=== PATIENT | male | born 1940 | race Caucasian/White ===

== ENCOUNTER 2018-12-20 01:45 | Inpatient (IN) ==
[2018-12-20] MEDS ORDERED: ASPIRIN PO ONE (02:49)
[2018-12-20] MEDS ORDERED: NITROGLYCERIN SL PRN (02:49)
[2018-12-20 03:41] LABS: BASO# 0.05 X1000 (0.0-0.2); BASO% 0.7 % (0.0-0.8); EOS# 0.04 X1000 (0.0-0.7); EOS% 0.5 % (0.0-10.0); HEMATOCRIT 39.6 % (42.0-52.0); HEMOGLOBIN 12.5 g/dL (14.0-18.0); IMM GRAN# 0.03 X1000 (0.0-0.04); IMM GRAN% 0.4 % (0.0-0.5); LYMPH# 0.88 X1000 (1.2-3.4); LYMPH% 12.1 % (20.5-51.1); MCH 29.1 PG (27-31); MCHC 31.6 g/dL (33-37); MCV 92.1 FL (81-99); MONO# 0.62 X1000 (0.11-0.59); MONO% 8.5 % (1.7-9.3); MPV 9.8 FL (7.4-10.4); NEUT# 5.68 X1000 (1.4-6.5); NEUT% 77.8 % (42.2-75.2); PLT 234 X1000 (130-400); RDW 15.7 % (11.5-14.5)
[2018-12-20 04:03] LABS: AGAP 10; ALB/GLOB RATIO 1.5; ALKALINE PHOSPHATASE 113 U/L (32-122); BUN 21 mg/dL (8-22); CALCIUM 8.6 mg/dL (8.8-10.2); CHLORIDE 106 mmol/L (98-107); COSMO 292; CREATININE 1.1 mg/dL (0.7-1.2); ESTIMATED GFR > 60; GLUCOSE 105 mg/dL (70-104); GOT 32 U/L (10-34); GPT 38 U/L (10-44); POTASSIUM 3.8 mmol/L (3.5-5.1); SODIUM 145 mmol/L (136-145); TCO2 29 mmol/L (25-35); TOTAL BILIRUBIN 0.79 mg/dL (0.20-1.00); TOTAL PROTEIN 6.7 g/dL (6.3-8.3)
--- NOTE | 2018-12-20 04:24 | PROVIDER DOCUMENTATION ---
HPI-Chest Pain - General Chief Complaint: Chest Pain Stated Complaint: CP- SOB Time Seen by Provider: 12/20/18 01:59 Source: patient, family Allergies/Adverse Reactions: Patient Allergies Allergy/AdvReac Type Severity Reaction Status Date / Time levofloxacin [From Levaquin] Allergy Mild RASH Verified 12/20/18 01:57 codeine [Codeine] AdvReac Mild NAUSEA Verified 12/20/18 01:57 Home Medications: Home Medication List Medication Instructions Recorded Confirmed Last Taken Type Tamsulosin [Flomax] 0.4 mg PO DAILY 05/11/12 12/20/18 12/19/18 History Finasteride 5 mg PO DAILY 09/16/17 12/20/18 12/19/18 History Furosemide [Lasix] 40 mg PO BID #60 tab 09/16/17 12/20/18 12/19/18 Rx Isosorbide Dinitrate [Isordil] 40 mg PO TID@0900,1500,2100 #90 tab 09/16/17 12/20/18 12/19/18 Rx Lisinopril 10 mg PO BID 09/16/17 12/20/18 12/19/18 History Metoprolol [Lopressor] 1 tab PO BID 09/16/17 12/20/18 12/19/18 History Mirtazapine 15 mg PO HS 09/16/17 12/20/18 12/19/18 History Warfarin [Coumadin] 2 mg PO DAILY 09/16/17 12/20/18 12/19/18 History Budesonide/Formoterol Fumarate 12/20/18 12/19/18 History [Symbicort 80-4.5 Mcg Inhaler] Hydralazine [Apresoline] PO 3-4XDAY PRN 12/20/18 Unknown History - History of Present Illness-CP Nature of Presenting Problem: 78 y/o c/o chest tightness and SOB since yesterday. He has history of having 2 heart valves replaced. Location: reports: substernal, other (lt sided) Chest Pain Radiation: reports: no radiation Quality of Pain: reports: tightness Severity in ED: moderate Onset/Duration: 24 hours ago Timing: still present Context/Activities at Onset: reports: light activity Modifying Factors: improves with: nothing Associated Symptoms: reports: edema, shortness of breath Nitro Today/Relief: provided by ED Aspirin Treatment Today: provided by ED Similar Symptoms Previously?: Yes Recently Seen Here or By Another Healthcare Provider: No Review of Systems - Adult - REVIEW OF SYSTEMS - ADULT Constitutional: reports: no symptoms reported, see HPI Eyes: reports: no symptoms reported, see HPI Ears, Nose, Mouth & Throat: reports: no symptoms reported, see HPI Cardiovascular: reports: see HPI, chest pain Respiratory: reports: shortness of breath Gastrointestinal: reports: no symptoms reported, see HPI Genitourinary: reports: no symptoms reported, see HPI Musculoskeletal: reports: no symptoms reported, see HPI Integumentary: reports: no symptoms reported, see HPI Neurological: reports: no symptoms reported, see HPI Psychiatric: reports: no symptoms reported, see HPI Endocrine: reports: no symptoms reported, see HPI Hematologic/Lymphatic: reports: no symptoms reported, see HPI Allergic/Immunologic: reports: no symptoms reported, see HPI All Other Systems: Reviewed and Negative Past History - Adult - PAST MEDICAL HISTORY-ADULT Review of Records: reports: Nursing Assessment Review, Medications Reviewed, Social history reviewed & non-contributory. Physical Exam-General - PHYSICAL EXAM-ADULT Initial Vital Signs Reviewed: Yes - CONSTITUTIONAL General Appearance: appears well, alert, no apparent distress - EYES Eyes: PERRL/EOMI - HEAD, EARS, NOSE, MOUTH & THROAT HENMT: normocephalic/atraumatic, moist mucous membranes - NECK Neck: non-tender, full range of motion, supple, normal inspection - RESPIRATORY Respiratory: chest non-tender, lungs clear, normal breath sounds, no pleuratic chest pain, no respiratory distress, no accessory muscle use - CARDIOVASCULAR Cardiovascular: normal peripheral pulses, regular rate, rhythm, no gallop, no JVD, no murmur - GASTROINTESTINAL (ABDOMEN) Abdominal Exam: normal bowel sounds, non tender, soft, no organomegaly, no pulsatile mass - LYMPHATIC Lymphatic: no adenopathy - MUSCULOSKELETAL Back Exam: normal inspection, no CVA tenderness, no vertebral tenderness Extremity: normal range of motion, non-tender, normal gait, normal inspection, no pedal edema, no calf tenderness, normal capillary refill - SKIN Integumentary: normal color, normal turgor - NEUROLOGIC Neurologic: estate manager II-XII nml as tested, grossly normal, no motor/sensory deficits - PSYCHIATRIC Psych/Mental Status: normal mood/affect, normal thought content, normal thought process, oriented x 3 - HEART Score HEART Score: History: Moderately Suspicious HEART Score: ECG: Non-Specific Repolarization Disturbance/LBBB/PM HEART Score: Age: > or = 65 Years HEART Score: Risk Factors for Atherosclerotic Disease: 1 or 2 Risk Factors HEART Score: Troponin: < or = Normal Limit Total HEART Score:: 5 Progress - PLAN OF CARE/RESULTS Progress/Plan/Lab Results: Vital Signs - 8 hr 12/20/18 02:05 12/20/18 04:00 Temperature 98 F 98.4 F Pulse Rate 77 70 Respiratory Rate 22 26 H Blood Pressure 205/106 167/91 O2 Sat by Pulse Oximetry 99 98 Laboratory Results - last 24 hr 12/20/18 12/20/18 12/20/18 03:15 03:15 03:15 WBC 7.30 RBC 4.30 L Hgb 12.5 L Hct 39.6 L MCV 92.1 MCH 29.1 MCHC 31.6 L RDW Std Deviation 15.7 H Plt Count 234 MPV 9.8 Immature Gran % (Auto) 0.4 Neut % (Auto) 77.8 H Lymph % (Auto) 12.1 L Whiteside % (Auto) 8.5 Eos % (Auto) 0.5 Baso % (Auto) 0.7 Immature Gran # (Auto) 0.03 Neut # (Auto) 5.68 Lymph # (Auto) 0.88 L Whiteside # (Auto) 0.62 H Eos # (Auto) 0.04 Baso # (Auto) 0.05 PT INR PTT (Actin FS) Sodium 145 Potassium 3.8 Chloride 106 Carbon Dioxide 29 Anion Gap 10 BUN 21 Creatinine 1.1 Estimated GFR/1.73 m2 > 60 BUN/Creatinine Ratio 19 Glucose 105 H Calculated Osmolality 292 Calcium 8.6 L Total Bilirubin 0.79 AST 32 ALT 38 Alkaline Phosphatase 113 Troponin T 0.032 Jox-S-Ztmtfoflaum Pept Total Protein 6.7 Albumin 4.0 Globulin 2.7 Albumin/Globulin Ratio 1.5 12/20/18 12/20/18 12/20/18 03:15 03:15 03:15 WBC RBC Hgb Hct MCV MCH MCHC RDW Std Deviation Plt Count MPV Immature Gran % (Auto) Neut % (Auto) Lymph % (Auto) Whiteside % (Auto) Eos % (Auto) Baso % (Auto) Immature Gran # (Auto) Neut # (Auto) Lymph # (Auto) Whiteside # (Auto) Eos # (Auto) Baso # (Auto) PT 33.4 H INR 3.02 PTT (Actin FS) 44.6 H Sodium Potassium Chloride Carbon Dioxide Anion Gap BUN Creatinine Estimated GFR/1.73 m2 BUN/Creatinine Ratio Glucose Calculated Osmolality Calcium Total Bilirubin AST ALT Alkaline Phosphatase Troponin T Dha-[place] Pept 4994 H Total Protein Albumin Globulin Albumin/Globulin Ratio Orders Category Date Time Status cxr [CHEST-1 VIEW] [RAD] Stat Exams 12/20/18 02:23 Taken BNP [PRO B-NATRIURETIC PEPTIDE] Stat Lab 12/20/18 03:15 Completed CBC WITH ELECTRONIC DIFF [HEME] Stat Lab 12/20/18 03:15 Completed COMPREHENSIVE METABOLIC PANEL [CHEM] Stat Lab 12/20/18 03:15 Completed PROTIME WITH INR [COAG] Stat Lab 12/20/18 03:15 Completed PTT [COAG] Stat Lab 12/20/18 03:15 Completed TROPONIN T Stat Lab 12/20/18 03:15 Completed URINALYSIS [URINALYSIS] Stat Lab 12/20/18 04:00 Ordered Aspirin Med 12/20/18 02:49 Discontinued 325 mg PO NOW ONE Nitroglycerin Sl [Nitroglycerin] Med 12/20/18 02:49 Active 0.4 mg SL Q5M PRN PRN EKG [EKG] Stat Ther 12/20/18 02:23 Ordered Result Diagrams: 12/20/18 03:15 12/20/18 03:15 Departure - Departure Date of Disposition Decision: 12/20/18 Time of Disposition Decision: 04:27 DIAGNOSIS: Congestive heart failure (CHF), Chest pain Disposition: ADMITTED INPATIENT 09 Certified Medical Emergency: Emergent Condition: Fair Referrals and Follow-Ups: Jas Murillo MD [Primary Care Provider] - - Critical Care Note This patient required my direct & personal management of CC.: No Attestation - Physician/ SASHA Attestation Patient care was provided by Advanced Practice Provider:: No The physician spent face to face time with patient:: Yes Advanced Practice Provider documentation review:: Supervising physician onsite and consulted in the evaluation and care of this patient. The physician did have a face to face encounter with the patient.
[2018-12-20 04:41] LABS: INR 3.02; PROTIME 33.4 Seconds (11.0-16.0)
[2018-12-20 05:30] LABS: URINE SOURCE CLEAN CATCH
[2018-12-20] MEDS ORDERED: LASIX IV ONE (05:31)
[2018-12-20 05:40] LABS: BILIRUBIN URINE NEGATIVE (NEGATIVE); BLOOD URINE NEGATIVE (NEGATIVE); COLOR YELLOW; GLUCOSE URINE NEGATIVE (NEGATIVE); KETONE URINE TRACE mg/dL (NEGATIVE); LEUKOCYTES URINE NEGATIVE (NEGATIVE); NITRITE URINE NEGATIVE (NEGATIVE); PH URINE 5.5; PROTEIN URINE 50 mg/dL (NEGATIVE); SP GRAVITY URINE 1.022; TURBIDITY URINE CLEAR (CLEAR); UROBILINOGEN URINE NORMAL (NORMAL)
[2018-12-20 05:42] LABS: UR EPITHELIAL CELLS <10 /HPF (<10); URINE BACTERIA NEGATIVE /HPF; URINE RBC <10 /HPF (<10); URINE WBC <10 /HPF (<10)
--- NOTE | 2018-12-20 06:31 | Diag Imaging Result Doc PS360 ---
CHEST-1 VIEW - 12/20/2018 INDICATION: cp COMPARISON: 12/12/2018 FINDINGS: Stable surgical changes to the heart. Stable significant cardiomegaly and pulmonary vascular congestion. No infiltrates or edema. No significant pleural effusion. IMPRESSION: Cardiomegaly and pulmonary vascular congestion. Electronically signed by Dylan Mayorga 12/20/2018 6:29 AM
--- NOTE | 2018-12-20 07:12 | EKG Report ---
Test Performed on : 12/20/2018 02:12:24 AM Test Reason : chest pain Blood Pressure : / mmHG Vent. Rate : 070 BPM Atrial Rate : 066 BPM P-R Int : 000 ms QRS Dur : 154 ms QT Int : 496 ms P-R-T Axes : 000 246 038 degrees QTc Int : 535 ms Atrial fibrillation. with premature ventricular or aberrantly conducted complexes. Right bundle branch block Inferior infarct (cited on or before 06-DEC-2011) Possible Anterolateral infarct , age undetermined Abnormal ECG When compared with ECG of 15-SEP-2017 06:47, Borderline criteria for Anterior infarct are now present Borderline criteria for Anterolateral infarct are now present Nonspecific T wave abnormality now evident in Inferior leads Nonspecific T wave abnormality no longer evident in Lateral leads Unconfirmed Result
--- NOTE | 2018-12-20 07:14 | HISTORY AND PHYSICAL ---
FAMILY CARE PROVIDER: Dr. Murillo. CHIEF COMPLAINT: Chest tightness and shortness of breath. HISTORY OF PRESENT ILLNESS: Mr. Barajas is a 78-year-old, male who carries a past medical history for severe coronary artery disease, status post CABG in 1994 with aortic valve replacement, and in 2009, developed endocarditis with mitral valve with severe mitral regurgitation that required reoperation with a mechanical mitral valve. He has been on anticoagulation with Coumadin. Atrial fibrillation, bipolar, GERD, osteoarthritis, who presented to the ED after an acute onset of shortness of breath that started at 2200 last night, associated with some chest tightness that did not radiate anywhere. He does not believe that he has had any weight gain. He saw Dr. Murillo 2 days ago. He has been taking his medications as prescribed. Again, he does not believe that he has had any weight gain. He has had some relief of his symptoms since he had treatment with IV Lasix, nitroglycerin, and aspirin. He has a slightly elevated ProBNP at 4994, slight elevation of his troponin at 0.032. He has had a chest x-ray; however, it is not available for review. It cannot be pulled up at this time. He denies any headache, fever, chills, nausea, vomiting, diarrhea, cough, or palpitations. He will be admitted to the medical telemetry floor for further workup and evaluation, and turned over to Dr. Murillo this morning. PAST MEDICAL HISTORY: 1. Coronary artery disease, status post CABG in 1994 along with aortic valve replacement with a mechanical valve. 2. In 2009, endocarditis of the mitral valve with severe mitral regurgitation, status post mechanical valve replacement, on chronic Coumadin therapy. 3. Bilateral inguinal hernia repair. 4. History of tonsillectomy and adenoidectomy. 5. Cholecystectomy secondary to chronic cholecystitis. 6. Right ulnar dysesthesia, status post surgery. 7. Benign prostatic hypertrophy. SOCIAL HISTORY: He is retired. He was . He lives at home alone. He is an ex-smoker but states he quit a long time ago. No alcohol or illicit drug use. FAMILY HISTORY: Father passed at the age of 65 secondary to complications from acute OR. His mother at the age of 88. ALLERGIES: Levaquin and codeine. HOME MEDICATIONS: 1. Symbicort 80/4.5 mcg inhaler. 2. Finasteride 5 mg p.o. daily. 3. Lasix 40 mg p.o. b.i.d. 4. Apresoline. 5. Isordil 40 mg p.o. t.i.d. 6. Lisinopril 10 mg p.o. b.i.d. 7. Lopressor 25 mg p.o. b.i.d. 8. Mirtazapine 50 mg p.o. at bedtime. 9. Flomax 0.4 mg p.o. daily. 10. Coumadin 2 mg p.o. daily. PHYSICAL EXAMINATION: VITAL SIGNS: Temperature 98.4 degrees, heart rate 70, respirations 26, blood pressure 167/91, O2 is 98% on 2 L nasal cannula. GENERAL: Mr. Barajas is a disheveled-looking, unkempt, 78-year-old, male who is lying on the stretcher on his left side, in no acute distress. HEENT: Atraumatic, normocephalic. PERRL. NECK: Supple. Trachea midline. I could not appreciate any JVD. CV: Irregularly irregular rhythm. No murmurs, gallops, or rubs noted. PULMONARY: Bilateral breath sounds are diminished. ABDOMEN: Soft, nontender, nondistended. Positive bowel sounds x4 quadrants. EXTREMITIES: Negative for any edema. NEUROLOGICAL: He follows commands. He moves all extremities. He answers questions appropriately. DIAGNOSTIC DATA: Chest x-ray, I am not able to pull it up at this time. It does not have an official over-read. EKG was not on the chart. He did appear on the monitor to be in atrial fibrillation, 50s to 60s. LABORATORY DATA: White count 7, hemoglobin and hematocrit 12 and 39, platelet count is 234,000. PT 33, INR 3.02. Sodium 145, potassium 3.8, BUN 21, creatinine 1.1, blood glucose is 105. Troponin 0.032. ProBNP is 4994. Urinalysis is negative for any bacteria, negative for nitrites. ASSESSMENT AND PLAN: 1. Mild congestive heart failure exacerbation with a slightly elevated proBNP. We will recheck an echocardiogram. Continue with gentle diuresis. Monitor intakes, outputs, and daily weights. Consult cardiology. 2. Chest pain. We will continue to trend his cardiac enzymes. He did have relief with sublingual nitroglycerin as well as intravenous Lasix. He is currently chest pain free. 3. Atrial fibrillation. We will continue with Coumadin. Monitor him on telemetry. Check an echocardiogram. 4. Status post aortic and mitral valve replacement with both mechanical valves, on chronic anticoagulation with Coumadin. We will check daily PT and INRs. 5. Long-term chronic anticoagulation. INR is therapeutic. 6. Bipolar disorder. 7. Gastroesophageal reflux disease. 8. Benign prostatic hypertrophy. 9. Further recommendations to follow physician evaluation, laboratory and diagnostic data. Dictated by MILE Morales for Cooper Wong MD I have performed a face to face diagnostic evaluation. Labs/ Xrays- reviewed. Exam- chest - rales, CV- regular A/P- CHF Exacerbation. , Chest Pain- Admit, gentle diuresis, serial troponins-, cardiology consult. Dr. Wong cc: MD Jas Turcios MD Luis N. Villanueva, MD [facility]ENTER[facility]
[2018-12-20] MEDS ORDERED: TYLENOL PO PRN (08:18)
[2018-12-20] MEDS ORDERED: PRINIVIL PO SCH (09:00)
[2018-12-20] MEDS ORDERED: LASIX IV SCH ×2 (09:00→21:00)
--- NOTE | 2018-12-20 09:06 | EKG Report ---
Test Performed on : 12/20/2018 08:57:06 AM Test Reason : follow up Blood Pressure : / mmHG Vent. Rate : 088 BPM Atrial Rate : 056 BPM P-R Int : 000 ms QRS Dur : 152 ms QT Int : 468 ms P-R-T Axes : 000 248 068 degrees QTc Int : 566 ms Atrial fibrillation. with premature ventricular or aberrantly conducted complexes. Right bundle branch block Inferior infarct (cited on or before 06-DEC-2011) Abnormal ECG When compared with ECG of 20-DEC-2018 02:12, (Unconfirmed) Serial changes of Inferior infarct present Confirmed by Yordan SILVA, Olayinka Flanagan ([id number]) on 12/21/2018 8:46:16 AM
--- NOTE | 2018-12-20 09:49 | PROGRESS NOTE ---
DATE: 12/20/2018 SUBJECTIVE: A 78-year-old white male who was admitted last night. He started having chest tightness and he has been complaining of being short of breath now for a couple of weeks. The tightness has gone away. We have checked a couple of times to see if he had hypoxemia significant enough to require oxygen, but his PO2 is well above normal limits. He has a history of severe coronary artery disease, status post CABG in 1994, aortic valve replacement in 2009, developed endocarditis of mitral valve and had severe mitral valve regurgitation, required reoperation with a mechanical mitral valve. He has been on anticoagulation with Coumadin since that time. History of atrial fibrillation, bipolar, gastroesophageal reflux disease, osteoarthritis. He also has a history of CVA with no residual deficits, but presented to the emergency room after shortness of breath that started about 10 o'clock last night, some chest tightness. He has been taking his medication and been following his Coumadin level. PAST MEDICAL HISTORY: 1. Coronary artery disease, CABG in 1994, along with aortic valve replacement, mechanical valve. 2. 2009 endocarditis of mitral valve with severe mitral regurgitation, status post mechanical valve replacement. Once again on Coumadin therapy. 3. Bilateral inguinal hernia repair. 4. History of tonsillectomy and adenoidectomy. 5. Cholecystectomy, secondary to cholecystitis. 6. Right ulnar dysesthesias, status post surgery. 7. Benign prostatic hypertrophy. MEDICATION: Symbicort 80 to 4.5 inhaler 2 puffs twice a day, finasteride 5 mg daily, Lasix 40 mg b.i.d., Apresoline, Isordil 40 mg t.i.d., lisinopril 10 mg b.i.d., Lopressor 25 mg b.i.d., mirtazapine 50 mg at bedtime, Flomax 0.4 mg daily, Coumadin 2 mg daily. OBJECTIVE: General: He is comfortable at present time, has nasal cannula in place. Awake, alert, oriented x3. Vitals: Remains afebrile, temperature 97.6 degrees, pulse 74, respirations 25, blood pressure 162/95. Eyes: Pupils are equal and round. Lungs: Clear anterolateral. Cardiovascular: Regular rhythm and rate without murmur or S3. Abdomen: Soft. Skin: Warm and dry. LABORATORY: White count 7300, hematocrit 39, hemoglobin 12, platelet count 234,000. Sodium 145, potassium 3.8, chloride 106, BUN 21, creatinine 1.1. ProBNP was 4994. ProTime is 33. INR of 3. PTT was 44. IMAGING: Chest x-ray: Cardiomegaly and pulmonary vascular congestion. No infiltrates. No pleural effusion appreciated. ASSESSMENT AND PLAN: 1. Chest tightness. Check cardiac enzymes. He is followed by Dr. Henderson. Troponin was 0.032. EKG shows right bundle branch block pattern. Appears to be in atrial fibrillation. He did have some premature ventricular complexes. He has the face of a right bundle branch block. I am not sure if he has true Q-waves in the inferior leads 2, 3 and AVF or not. I guess we may have to explore whether this is coronary insufficiency. He has been complaining of being more short of breath. On chest x-ray, I do not see any infiltrates, but it appears that he has vascularization out to the peripheral and I wonder if this is pulmonary venous hypertension. See if he responds to some diuresis. 2. Atrial fibrillation. Rate appears to be controlled. He is already on Coumadin because of his mechanical valve. 3. Status post aortic and mitral valve replacement with mechanical valves. He is adequately anticoagulated. 4. Long-term coagulation. INR is therapeutic. 5. Bipolar disorder. 6. Gastroesophageal reflux disease. 7. Benign prostatic hypertrophy. 8. His nutrition seems to be good. cc: Jas Murillo MD
[2018-12-20] MEDS: PRILOSEC PO SCH (10:58)
[2018-12-20] MEDS: PROSCAR PO SCH (10:58)
[2018-12-20] MEDS: ISORDIL PO SCH ×3 (10:58→20:19)
[2018-12-20] MEDS: LOPRESSOR PO SCH ×2 (10:58→20:07)
[2018-12-20] MEDS: FLOMAX PO SCH (10:58)
--- NOTE | 2018-12-20 12:11 | CARDIOLOGY CONSULTATION ---
DATE: 12/20/2018 CHIEF COMPLAINT: Shortness of breath, chest tightness. HISTORY OF PRESENT ILLNESS: Mr. Barajas is a 78-year-old white male with a history of coronary disease with previous bypass in 1994 with aortic valve replacement at that time, subsequently followed by 2009 mitral valve replacement with a mechanical valve secondary to endocarditis. Last night he was in his usual state of health when he became very short of breath and had some chest tightness occurring while he was getting ready for bed. He was not doing any significant exertion at the time. He reports compliance with his medications including his diuretics. He did not have any syncope. He reports compliance with his Coumadin. Reports that the levels have been under good control. He last saw Dr. Henderson in August 2018. PAST MEDICAL HISTORY: 1. Significant for coronary bypass grafting in 1994 with a vein graft to the LAD. At that time, he had an aortic valve replacement. 2. History of mitral valve replacement in [address] Johnson with a [employer] mitral valve. 3. History of atrial fibrillation in 2008 with a DC cardioversion. 4. Osteoarthritis. 5. Reflux disease. 6. Systolic heart failure. Last echocardiogram was in August 2017 demonstrating an EF of 40 to 45 percent. SOCIAL HISTORY: Retired, . Lives at home alone. Ex-smoker, quit many years ago. No alcohol use. FAMILY HISTORY: Father at 65 due to complications from an [facility]. His mother at the age of 88. REVIEW OF SYSTEMS: A 10 system review of systems is negative except for those things mentioned in HPI. PHYSICAL EXAMINATION: Vital Signs: He is afebrile. His heart rate most recently was 109, blood pressure 154/75. His presenting blood pressure was 205/106. His intake and output are -700 mL. Generally: No acute distress. HEENT: Oropharynx is moist. Poor dentition. Eye examination is pink conjunctiva, white sclerae. Neck: Shows no obvious thyromegaly or thyroid tenderness. Cardiovascular: He sounds to be in a regular rate and rhythm. I do not hear any obvious murmurs. He has a mechanical S1 and S2. No lower extremity edema. He has warm and well-perfused extremities. Chest: Has somewhat reduced breath sounds diffusely. No increased work of breathing. Abdomen: Soft, nontender, nondistended. He has no obvious organomegaly. Skin: Warm and dry throughout without any rashes. Neurological: He is moving all extremities well. He has no lateralizing deficits. Psychiatric: He is alert, oriented, pleasant. Normal mood and affect. PERTINENT DATA: His EKG has a nonspecific intraventricular conduction delay. He is in atrial fibrillation with a rate of 70. Subsequent EKG on the 1st again shows what appears to be a nonspecific intraventricular conduction delay, somewhat of a right bundle pattern, atrial fibrillation rate of 88 beats per minute. His chest x-ray demonstrated cardiomegaly and pulmonary vascular congestion. His lab data shows a white count of 7.3, his hematocrit is 39, his platelet count is 234,000. His INR is 3. His sodium is 145, potassium 3.8, BUN 21, creatinine is 1.1. His cardiac enzymes are negative times multiple sets. His proBNP is 4994. ASSESSMENT: Mr. Barajas is a 78-year-old gentleman who presents with what appears to be heart failure. PLAN: We will reinstitute some his medications including his hydralazine. I will escalate his lisinopril to 20 mg b.i.d. I will stop his oral Lasix and up-titrate his IV Lasix to 40 mg. INR management will be per the primary team. I will order laboratories in the morning including a proBNP. cc: MD Jas Morales MD
[2018-12-20] MEDS: APRESOLINE PO SCH ×2 (13:34→20:06)
[2018-12-20] MEDS: ZOFRAN IV PRN (18:09)
[2018-12-20] MEDS: PRINIVIL PO SCH (20:06)
[2018-12-20] MEDS: COUMADIN PO SCH (20:20)
[2018-12-20] MEDS: REMERON PO SCH (20:20)
[2018-12-20] MEDS: SYMBICORT 80/4.5 MICROGM INHALER INH SCH (20:21)
[2018-12-20] MEDS ORDERED: NS 500 ML IV ONE (22:54)
--- NOTE | 2018-12-20 23:17 | ECHO REPORT ---
ORDER DATE: 12/20/2018 SUMMARY: 1. Technically difficult study due to very limited acoustic window quality. 2. Aortic valve has been replaced with mechanical prosthesis, which is not well imaged due to acoustic shadowing. Peak gradient across aortic valve is 26 mmHg, with a mean gradient of 15 mmHg. Values are consistent with adequate prosthetic valve function. There is no evidence of aortic regurgitation. Mitral valve has been replaced with mechanical prosthesis, which also was not well imaged due to acoustic shadowing. Peak gradient across the mitral valve is 14 mmHg with a mean gradient of 4 mmHg, at a heart rate of 72 beats per minute. Using pressure half-time method, the calculated mitral valve area is 2.2 cm2. Values are consistent with adequate prosthetic valve function. There is no evidence of mitral regurgitation. Tricuspid valve is without evidence of structural abnormality. Pulmonic valve is not well demonstrated. The aortic root is mildly enlarged. 3. Normal left ventricular chamber size with moderate concentric left hypertrophy is suggested on 2-dimensional images. Estimated left ejection fraction approximately 50%. No obvious regional wall motion abnormality can be appreciated. Left atrium is moderately enlarged. Right atrium is [id number] enlarged. The right ventricle is normal size with grossly preserved right ventricular systolic function. 4. No pericardial effusion. 5. Appearance of inferior vena cava suggests normal central venous pressure. cc: MD Jas Ortiz MD
[2018-12-21] MEDS: NS 500 ML IV SCH ×2 (00:54→00:55)
[2018-12-21] MEDS: APRESOLINE PO SCH ×3 (04:10→22:03)
[2018-12-21] MEDS: PRILOSEC PO SCH ×2 (05:12→06:28)
[2018-12-21 07:03] LABS: BASO# 0.03 X1000 (0.0-0.2); BASO% 0.5 % (0.0-0.8); EOS# 0.08 X1000 (0.0-0.7); EOS% 1.3 % (0.0-10.0); HEMATOCRIT 40.9 % (42.0-52.0); HEMOGLOBIN 12.7 g/dL (14.0-18.0); LYMPH# 0.74 X1000 (1.2-3.4); LYMPH% 11.7 % (20.5-51.1); MCH 29.5 PG (27-31); MCHC 31.1 g/dL (33-37); MCV 94.9 FL (81-99); MONO# 0.61 X1000 (0.11-0.59); MONO% 9.6 % (1.7-9.3); MPV 9.9 FL (7.4-10.4); NEUT# 4.87 X1000 (1.4-6.5); NEUT% 76.9 % (42.2-75.2); PLT 222 X1000 (130-400); RBC 4.31 XMIL (4.7-6.1); RDW 15.7 % (11.5-14.5); WBC 6.33 X1000 (4.8-10.8)
--- NOTE | 2018-12-21 07:05 | Diag Imaging Result Doc PS360 ---
EXAM: CHEST-PORTABLE 12/21/2018 HISTORY: Chest Pain TECHNIQUE: AP portable at 0545 COMMENT: Compared to the previous study of 12/20/2018 there is slightly worse platelike atelectasis in the lingula. There is COPD. IMPRESSION: Slightly worsened atelectasis in the lingula. Electronically signed by Behzad Carlson 12/21/2018 7:03 AM
[2018-12-21 07:32] LABS: AGAP 12; ALB/GLOB RATIO 1.3; ALBUMIN 3.5 g/dL (3.5-5.0); ALKALINE PHOSPHATASE 97 U/L (32-122); BUN 23 mg/dL (8-22); CALCIUM 8.5 mg/dL (8.8-10.2); CHLORIDE 103 mmol/L (98-107); CHOLESTEROL 136 mg/dL (0-200); COSMO 288; CREATININE 1.1 mg/dL (0.7-1.2); ESTIMATED GFR > 60; GLUCOSE 85 mg/dL (70-104); GOT 30 U/L (10-34); GPT 29 U/L (10-44); HDL 57 mg/dL (35-55); LDL 65 mg/dL; POTASSIUM 4.2 mmol/L (3.5-5.1); SODIUM 143 mmol/L (136-145); TCO2 28 mmol/L (25-35); TOTAL BILIRUBIN 0.83 mg/dL (0.20-1.00); TOTAL PROTEIN 6.2 g/dL (6.3-8.3); TRIGLYCERIDES 68 mg/dL (39-160); VLDL 14 mg/dL
[2018-12-21] MEDS: PROSCAR PO SCH (08:55)
[2018-12-21] MEDS: PRINIVIL PO SCH ×2 (08:55→22:03)
[2018-12-21] MEDS: FLOMAX PO SCH (08:55)
[2018-12-21] MEDS: LOPRESSOR PO SCH ×2 (08:55→22:04)
[2018-12-21] MEDS: ISORDIL PO SCH ×3 (08:55→22:04)
[2018-12-21] MEDS: ASPIRIN PO SCH (08:55)
[2018-12-21] MEDS: ZOFRAN IV PRN ×2 (08:59→15:41)
[2018-12-21] MEDS: SYMBICORT 80/4.5 MICROGM INHALER INH SCH ×2 (09:00→19:05)
[2018-12-21] MEDS ORDERED: LASIX PO SCH (09:00)
--- NOTE | 2018-12-21 09:03 | PROGRESS NOTE ---
DATE: 12/21/2018 SUBJECTIVE: Mr. Barajas says he is feeling better. He is breathing a little better. I did note that he had a 6-beat run of ventricular tachycardia last night. He denies any further chest tightness or chest discomfort. OBJECTIVE: Vital Signs: Temp 98.2 degrees, pulse 62, respirations 12, blood pressure 122/55. Urine output is 960 mL. HEENT: Pupils are equal and round. Neck: No distended neck veins. Lungs: Clear in all lung reed. Cardiovascular: Regular rhythm and rate without murmur or S3. Abdomen: Soft. Skin: Warm and dry. IMAGING: Chest x-ray: Slightly worsened atelectasis in the lingula. ASSESSMENT AND PLAN: 1. Chest pain and tightness. Reinstituted some of his medications, hydralazine and went up on his lisinopril to 20 mg twice daily. Getting intravenous Lasix, and seems to be improving with some diuresis. He has a mechanical aortic and mitral valve, and they appear to be functioning well. His electrolytes look good. Creatinine is 1.1, sodium 143, potassium 4.2, chloride 103, BUN 23, so we will look at his echocardiogram which was done yesterday, technically difficult study, limited acoustic windows. His gradient across the aortic valve is 26 mmHg, mean gradient is 15. Appears to be adequate prosthetic function. No evidence of aortic regurgitation. Mitral valve has been replaced with mechanical prosthesis, and gradient across the mitral valve is 14 mmHg, mean gradient is 4 mmHg, and this is consistent with adequate prosthetic valve function. Normal left ventricular chamber size. Ejection fraction is 50%. 2. Bipolar disorder. Aware. He is eating. His bowels are moving well. He did have a run of ventricular tachycardia, a short nonsustained run, and his cardiac enzymes are unremarkable. Troponin 0.026 and 0.023. cc: Jas Murillo MD
[2018-12-21] MEDS: REMERON PO SCH (22:03)
[2018-12-21] MEDS: COUMADIN PO SCH (22:04)
[2018-12-22] MEDS: PRILOSEC PO SCH (06:23)
[2018-12-22 06:45] LABS: INR 2.94; PROTIME 32.7 Seconds (11.0-16.0)
[2018-12-22 07:01] LABS: CALCIUM 8.6 mg/dL (8.8-10.2); CREATININE 1.2 mg/dL (0.7-1.2); MAGNESIUM 2.1 mg/dL (1.5-2.7); POTASSIUM 4.5 mmol/L (3.5-5.1)
[2018-12-22 07:22] LABS: FREE T4 1.37 ng/dL (0.93-1.70); TSH 0.72 uIUmL (0.27-4.20)
[2018-12-22] MEDS ORDERED: LEXISCAN ONE (07:49)
[2018-12-22] MEDS: SYMBICORT 80/4.5 MICROGM INHALER INH SCH ×2 (08:00→20:06)
[2018-12-22] MEDS: ASPIRIN PO SCH (10:42)
[2018-12-22] MEDS: ISORDIL PO SCH ×3 (10:42→20:54)
[2018-12-22] MEDS: PROSCAR PO SCH (10:42)
[2018-12-22] MEDS: APRESOLINE PO SCH ×3 (10:43→17:05)
[2018-12-22] MEDS: FLOMAX PO SCH (10:43)
[2018-12-22] MEDS: LOPRESSOR PO SCH ×2 (10:43→20:53)
[2018-12-22] MEDS: PRINIVIL PO SCH ×2 (10:43→20:53)
--- NOTE | 2018-12-22 13:45 | Diag Imaging Result Document ---
PROCEDURE NAME: MYOCARDIAL PERF SCAN, STR/REST - 12/22/2018 INDICATION: Dyspnea, chest pain. PROCEDURES PERFORMED: 1. Lexiscan stress. 2. One-day stress/rest myocardial perfusion imaging. PROCEDURE DETAIL: Mr. Barajas was brought to the nuclear laboratory and had a resting study with injection of 10.7 mCi of technetium-99m sestamibi with usual imaging protocol utilized. He subsequently was brought back and had a Lexiscan stress and at peak stress, was injected with 30.3 mCi of technetium-99m sestamibi with usual imaging protocol utilized. FINDINGS: LEXISCAN STRESS RESULTS: 1. Baseline EKG shows atrial fibrillation with an intraventricular conduction delay. 2. Lexiscan stress did not demonstrate any clear evidence of ischemic-related EKG changes or significant arrhythmias. Occasional PVCs were identified during the course of study. PERFUSION IMAGING RESULTS: 1. No evidence of abnormal extracardiac uptake. 2. TID ratio is 1.15. 3. Perfusion imaging shows a large size, severe intensity, fixed defect located in the apical, apical anterior, and mid anterior segments. This is most likely consistent with infarct. There does not appear to be any clear evidence of blanca-infarct ischemia. 4. Reduced ejection fraction of 38%. The end-diastolic volume is 202, end systolic volume of 125 suggesting LV dilatation. There is apical akinesis as well as distal and mid anterior akinesis. cc: MD Vicki Morales PA
--- NOTE | 2018-12-22 17:18 | PROGRESS NOTE ---
DATE: 12/22/2018 SUBJECTIVE: Mr. Barajas is breathing better. He did have a little shortness of breath I think when he was down doing his Lexiscan stress test. He wanted to know when he can go home. He is eating well. His bowels are moving. OBJECTIVE: Vital Signs: Temperature 97.3 degrees, pulse 79, respirations 14, blood pressure 119/46. HEENT: Pupils are equal and round. Lungs: Clear in all lung reed. Cardiovascular: Regular rate without murmur or S3. Abdomen: Soft. Skin: Warm and dry. DIAGNOSTIC STUDIES: Urine output 700 mL through the course of the day. Myocardial perfusion scan: Baseline EKG showed atrial fib, intraventricular conduction delay. It did not demonstrate any clear evidence of ischemia on EKG. Perfusion images showed large sized severe intensity fixed defect located mainly apical anterior in the mid anterior segments, most likely consistent with infarct. No clear evidence of blanca-infarct ischemia, reduced ejection fraction 38%. End-diastolic volume was 202 and systolic volume was 125, suggesting LV dilatation, had apical akinesis as well as distal and mid anterior akinesis. ASSESSMENT AND PLAN: 1. Presented with chest pain and shortness of breath. He seems to have responded to diuresis. Dr. Stas Mirza has been adjusting his medications. His blood pressures seem to be doing well. They are between 109 and 141 over 41 to 55. I am going to watch him another 48 hours and make sure that we are progressing. 2. He did have a 6 beat run of ventricular tachycardia. Aware. 3. He has 2 mechanical valves, aortic valve mitral valve, and he is on chronic anticoagulation. His creatinine is good today at 1.3. ProTime is 32. An INR is 2.9, which is optimal. cc: Jas Murillo MD
--- NOTE | 2018-12-22 19:30 | CARDIOLOGY PROGRESS NOTE ---
DATE: 12/22/2018 SUBJECTIVE: Mr. Barajas reports he is doing better. He is not having any significant shortness of breath. No chest discomfort. PHYSICAL EXAMINATION: Vital Signs: Afebrile. His heart rates have been predominantly in the 50s to 60s. Blood pressure 145/58. His I's and O's are difficult to track secondary to poor intake and output recording. General: No acute distress. Cardiovascular: He sounds to be in a regular rate and rhythm. He has no murmurs. No S3. He has no lower extremity edema. Chest: Exam sounds clear bilaterally. He has no increased work of breathing. Abdomen: Soft, nontender. PERTINENT DATA: BUN and creatinine of 27 and 1.2. INR 2.94. His proBNP is 4994 on admit and subsequently is 1169. He had a nuclear scan performed today showing a reduction in EF to around 38% as well as a severe intensity fixed defect in the apical anterior, mid anterior segments consistent with infarct. His echocardiogram demonstrated an ejection fraction of 50% on estimate. Mitral valve had a mean gradient of 4 and the aortic valve replacement had a mean gradient of 15. ASSESSMENT: Mr. Barajas is a 78-year-old gentleman who presented with episodes of shortness of breath and chest tightness. PLAN: I believe his shortness of breath and chest tightness were most likely secondary to heart failure that was due to his significant hypertension when he presented. He was reinstituted on medications and diuresed and subsequently had a somewhat hypotensive period. I believe he most likely was not compliance with his medications or his diet. Since that time, he has had reasonable control of his blood pressure. His BNP has reduced and he has not had any further shortness of breath or chest pain. From my standpoint, the patient could likely be discharged home. Please contact us if you have further questions. cc: MD Jas Morales MD
[2018-12-22] MEDS: REMERON PO SCH (20:53)
[2018-12-22] MEDS: COUMADIN PO SCH (20:53)
[2018-12-23] MEDS: PRILOSEC PO SCH ×2 (05:34→06:07)
[2018-12-23 06:47] LABS: INR 2.53; PROTIME 29.1 Seconds (11.0-16.0)
--- NOTE | 2018-12-23 08:56 | PROGRESS NOTE ---
DATE: 12/23/2018 SUBJECTIVE: Mr. Barajas just woke up, but he does seem to be breathing better. Had no events during the night. Remains afebrile. OBJECTIVE: Vital Signs: Temperature 97.6 degrees, pulse 95, respirations 16, blood pressure 179/73. Eyes: Pupils are equal and round. Lungs: Clear in all lung reed. Cardiovascular exam: Regular rhythm and rate without murmur or S3. Abdomen: Soft. Skin: Warm and dry. : Urine output is 600 mL. ASSESSMENT AND PLAN: 1. Presented with chest pain. Has responded to diuresis. Lexiscan did not show any new areas of ischemia. He does have left ventricular systolic dysfunction, mainly in the apical region, and dilated cardiomyopathy. His valves seemed to be functioning well according to echocardiogram. We have tuned up his medications. Blood pressure has come up a little bit, so continue to make adjustments per Cardiology. 2. Medications: Isosorbide dinitrate 20 mg three times a day, Prinivil 20 mg twice daily, Lopressor 25 mg twice daily and Coumadin 2 mg at bedtime. 3. Mechanical aortic and mitral valve. He is on Coumadin. His pro time is therapeutic at 29, INR was 2.5. 4. Nutrition: Seems to be good with good oral intake. His bowels are moving. Reviewed his orders: I am going to keep him another 48 hours. He did have a 6 beat run of ventricular tachycardia, aware. cc: Jas Murillo MD
[2018-12-23] MEDS: PROSCAR PO SCH (09:09)
[2018-12-23] MEDS: APRESOLINE PO SCH ×3 (09:09→18:56)
[2018-12-23] MEDS: ISORDIL PO SCH ×3 (09:09→21:11)
[2018-12-23] MEDS: PRINIVIL PO SCH ×2 (09:09→21:12)
[2018-12-23] MEDS: FLOMAX PO SCH (09:10)
[2018-12-23] MEDS: LOPRESSOR PO SCH ×3 (09:10→21:12)
[2018-12-23] MEDS: ASPIRIN PO SCH (09:10)
[2018-12-23] MEDS: SYMBICORT 80/4.5 MICROGM INHALER INH SCH ×2 (09:14→19:44)
[2018-12-23] MEDS: COUMADIN PO SCH (21:11)
[2018-12-23] MEDS: REMERON PO SCH (21:11)
[2018-12-24] MEDS: PRILOSEC PO SCH ×2 (05:32→06:03)
[2018-12-24 06:39] LABS: INR 2.05; PROTIME 24.7 Seconds (11.0-16.0)
[2018-12-24] MEDS: SYMBICORT 80/4.5 MICROGM INHALER INH SCH ×2 (08:09→19:20)
[2018-12-24] MEDS: PRINIVIL PO SCH ×2 (09:22→22:30)
[2018-12-24] MEDS: PROSCAR PO SCH (09:22)
[2018-12-24] MEDS: LOPRESSOR PO SCH ×2 (09:22→22:31)
[2018-12-24] MEDS: FLOMAX PO SCH (09:22)
[2018-12-24] MEDS: ISORDIL PO SCH ×3 (09:22→22:31)
[2018-12-24] MEDS: ASPIRIN PO SCH (09:23)
[2018-12-24] MEDS: APRESOLINE PO SCH ×3 (09:26→18:37)
--- NOTE | 2018-12-24 13:59 | PROGRESS NOTE ---
DATE: 12/24/2018 Mr. Barajas said he had pretty good night complained of being a little bit short of breath this morning. Blood pressures appear to be in good range. He has no complaints of chest tightness. He has been afebrile. Lungs are clear anterolateral. Chest x-ray looks clear. Cardiovascular exam, S2 mechanical valve. Good mechanical heart sounds, pulses seem to be strong carotid, radial, femoral. Abdomen soft. Skin is warm and dry. No pedal edema. ASSESSMENT AND PLAN: Mechanical mitral aortic valve, valve seem to be functioning well. His blood pressures appear optimal. Has had no further chest pain, suspect some underlying coronary artery disease. His Lexiscan did not show any new areas of reversible ischemia so he seems to have responded to diuresis. Hoping he can be discharged tomorrow. Continue to adjust his medications to optimize his afterload. Renal function seems to be good. He is on Coumadin, pro times therapeutic. cc: Jas Murillo MD
--- NOTE | 2018-12-24 18:13 | Diag Imaging Result Doc PS360 ---
EXAM: CHEST-PORTABLE INDICATION: possible aspiration TECHNIQUE: One view COMPARISON: 12/21/2018 FINDINGS: Diffuse interstitial thickening suggesting fibrosis +/- edema is grossly stable. No new consolidation is identified. The cardiac silhouette is stable. IMPRESSION: Stable chest. Electronically signed by Cory Adhikari 12/24/2018 6:10 PM
[2018-12-24] MEDS: REMERON PO SCH (22:30)
[2018-12-24] MEDS: COUMADIN PO SCH (22:31)
[2018-12-25] MEDS: PRILOSEC PO SCH (06:05)
[2018-12-25 06:29] LABS: INR 1.7; PROTIME 21.2 Seconds (11.0-16.0)
[2018-12-25] MEDS: SYMBICORT 80/4.5 MICROGM INHALER INH SCH ×2 (08:06→19:30)
[2018-12-25] MEDS: PRINIVIL PO SCH ×2 (08:20→23:15)
[2018-12-25] MEDS: APRESOLINE PO SCH ×3 (08:20→17:03)
[2018-12-25] MEDS: ISORDIL PO SCH ×3 (08:20→23:15)
[2018-12-25] MEDS: PROSCAR PO SCH (08:20)
[2018-12-25] MEDS: FLOMAX PO SCH (08:21)
[2018-12-25] MEDS: LOPRESSOR PO SCH ×2 (08:21→23:15)
[2018-12-25] MEDS: ASPIRIN PO SCH (08:21)
--- NOTE | 2018-12-25 10:00 | PROGRESS NOTE ---
DATE: 12/25/2018 Mr. Barajas is doing better, breathing better. He is still on oxygen, 4 L. I am going to see if he needs oxygen at home. We have tried a couple times as an outpatient and he is not qualified. Going to have respiratory therapy help me with that. Blood pressure looks better. He has not had any further chest pain and prothrombin time is therapeutic. He remains afebrile. PHYSICAL EXAMINATION: Temperature 97.8 degrees, pulse 80, respirations 18, blood pressure 170/68. Pupils are equal and round. Lungs are clear in all lung reed. Cardiovascular Examination: Regular rhythm and rate without murmur or S3. Abdomen is soft. Skin is warm and dry. REVIEW OF ORDERS: He is on aspirin 81 mg a day, Apresoline 25 mg t.i.d., isosorbide dinitrate 20 mg p.o. t.i.d., Prinivil 20 mg b.i.d., Lopressor 25 mg b.i.d., Remeron 15 mg at bedtime, Prilosec 20 mg daily, Flomax 0.4 mg a day, Coumadin 2 mg at bedtime, and budesonide-formoterol inhaler. LABS: We did a chest x-ray this morning, stable chest. There is diffuse interstitial thickening suggestive of fibrosis. ASSESSMENT AND PLAN: 1. Mechanical aortic and mitral valve which appears to be functioning well with systolic dysfunction. His x-ray unimpressive for pulmonary edema but seems to have responded to some diuresis and adjustment of his afterload. 2. Underlying coronary artery disease, suspicious that he may have some coronary ischemia but his Lexiscan did not reveal any new reversible areas of ischemia. 3. Possible interstitial fibrosis or interstitial process going on in the lungs. We will see if he qualifies for oxygen. My plan is to try to let him go home in the morning. He is on Coumadin and his prothrombin time is therapeutic. It has come down a little bit to 21 so I will probably adjust his Coumadin up to 3 mg a day and see how we do with that. cc: Jas Murillo MD
[2018-12-25] MEDS ORDERED: COUMADIN PO SCH (21:00)
[2018-12-25] MEDS: REMERON PO SCH (23:15)
[2018-12-26] MEDS: PRILOSEC PO SCH (06:26)
[2018-12-26 06:55] LABS: INR 1.57; PROTIME 19.9 Seconds (11.0-16.0)
[2018-12-26] MEDS: SYMBICORT 80/4.5 MICROGM INHALER INH SCH (08:31)
[2018-12-26] MEDS: LOPRESSOR PO SCH (08:35)
[2018-12-26] MEDS: PROSCAR PO SCH (08:35)
[2018-12-26] MEDS: APRESOLINE PO SCH ×2 (08:35→13:22)
[2018-12-26] MEDS: ASPIRIN PO SCH (08:35)
[2018-12-26] MEDS: FLOMAX PO SCH (08:36)
[2018-12-26] MEDS: ISORDIL PO SCH (08:36)
[2018-12-26] MEDS: PRINIVIL PO SCH (08:36)
--- NOTE | 2018-12-26 09:47 | DISCHARGE SUMMARY ---
ADMISSION DATE: 12/20/2018 DISCHARGE DATE: 12/26/2018 HISTORY OF PRESENT ILLNESS: Came in with chest tightness, shortness of breath. Came on all of a sudden and it did not feel like he could breathe. He had been complaining for several weeks of shortness of breath. We had tried to see if he was eligible for O2. His blood gases and O2 saturations were greater than 94% on testing. This time, came in with chest pain that lasted for really he said a couple hours. PAST MEDICAL HISTORY: Severe coronary artery disease, status post CABG in 1994, aortic valve replacement in 2009, developed endocarditis, had mitral valve with severe regurgitation and that was replaced with a mechanical valve as well. He has been anticoagulated with Coumadin. Atrial fibrillation, bipolar, gastroesophageal reflux disease, and osteoarthritis. HOSPITAL COURSE: Presented to the emergency room with shortness of breath that started at 2200. Severe chest tightness, did not radiate anywhere. He had been consistent with his medication, his Coumadin. Prothrombin time level had been therapeutic. On presentation, proBNP was 4994. Troponin was 0.032. The patient was admitted. Chest x-ray was pretty clear. We did try and diurese. Echocardiogram was obtained. Cardiology helped evaluate. His mechanical valve seem to be working well based on echocardiogram. He did have systolic dysfunction. We were treating him with Lasix IV 40 mg, I believe, q.12. He seemed to have some clinical improvement. Echocardiogram showed a normal left ventricular chamber size, moderate concentric LVH, suggestive of two-dimensional images. Estimated ejection fraction of 50%. No obvious regional wall motion abnormalities appreciated. Left atrium moderately enlarged. Right atrium mildly to moderately enlarged. No pericardial effusion. His valves seemed to be opening and closing well so more diastolic concentric hypertrophy. Ejection fraction 50%. Did a myocardial perfusion scan on 12/22/2018. Perfusion scan shows large size, severe intensity, fixed defect located in the apical anterior and mid anterior segments, most likely consistent with infarct. There does not appear to be any clear evidence of blanca-infarct ischemia and the ejection fraction there, they calculated at 38%. On echocardiogram, they were estimating 50%. Apical akinesis as well, with distal and anterior akinesis. The patient seemed to qualify for oxygen. His O2 saturations dropped below 90 when he was off so I think we can try and set him up for home O2. Chest x-ray never did show any infiltrate or effusion. He seemed to be feeling a little better. Mcmillan he could be discharged on 12/26/2018. Discharged on aspirin 81 mg a day, Symbicort 80/4.5 two puffs b.i.d., Proscar 5 mg a day, Apresoline 25 mg t.i.d., Isordil 20 mg t.i.d., Prinivil 20 mg b.i.d., Lopressor 25 mg b.i.d., Remeron 15 mg at bedtime. He has sublingual nitroglycerin 0.4 mg sublingual p.r.n., Prilosec 20 mg a day, Flomax 0.4 mg a day, and back on Coumadin 4 mg a day. Note, his prothrombin time remained therapeutic. We will set him up for oxygen at 2 L per nasal cannula. We had some long and krystyna discussions about the importance of keeping oxygen away from any open flames. We will follow him up in my office in 2 weeks. cc: Jas Murillo MD
[2018-12-26 11:24] VITALS: BP 128/53
== END 2018-12-26 14:43 | disposition home or self-care (01) | DRG 292 ==
LOC: SUPCPDRO → ED 01:45 → 4N 07:36 → SUATTDRO 07:36
PROVIDERS: ADMIT Emergency Medicine; ATTEND Emergency Medicine
CPT/HCPCS: 71010; 71045; 78452; 80048; 80053; 80061; 81001; 82550; 82607; 82746; 83735; 83880; 84439; 84443; 84484; 85025; 85610; 85730; 93005; 93010; 93017; 93306; 94640; 94760; 94761; 96374; 97110; 97116; 97163; 99285; A9270; A9500; J1940; J2405; J2785; J7040; S0138